=== PATIENT | male | born 1995 | race Caucasian/White ===

== ENCOUNTER 2018-08-21 13:18 | Emergency (ER) | payer OTHER ==
[2018-08-21] MEDS ORDERED: MAG HYDROX/AL HYDROX/SIMETH 30 ML UDC PO STA (13:35)
[2018-08-21] MEDS ORDERED: LIDOCAINE VISCOUS 2% 15 ML UDC MM STA (13:35)
--- NOTE | 2018-08-21 13:43 | ED Physician Documentation ---
PD HPI ABD PAIN - Stated complaint Stated Complaint: ABD PX - Chief complaint Chief Complaint: Abd Pain - History obtained from History obtained from: Patient - History of Present Illness Timing - onset: How many years ago (1) Timing - details: Intermittant (Worse during the past three days.) Pain level now: 5 Quality: Stabbing Location: LUQ Associated symptoms: Nausea. No: Vomiting Similar symptoms before: No diagnosis, Work up / diagnostics (Ultrasound of RUQ today was normal.) Recently seen: Clinic - Additional information Additional information: The patient is a 23-year-old male who presents with left upper quadrant abdominal pain. He has had the pain intermittently for the past year, but it is been worse over the past 3 days. It is worse when eating salty food. He also reports intermittent epigastric discomfort, and occasionally gets a bitter taste in his mouth. He denies fever, cough, or shortness of breath. He reports nausea, without vomiting. He was seen by his primary physician who ordered on outpatient ultrasound of the gallbladder which was performed today, and was read as negative. Review of Systems Constitutional: denies: Fever, Fatigue Nose: denies: Congestion Throat: denies: Sore throat Cardiac: denies: Chest pain / pressure Respiratory: denies: Dyspnea, Cough GI: reports: Abdominal Pain, Nausea. denies: Vomiting, Diarrhea : denies: Dysuria Skin: denies: Rash Musculoskeletal: denies: Back pain, Extremity pain Neurologic: denies: Focal weakness, Numbness, Headache PD PAST MEDICAL HISTORY - Past Medical History Past Medical History: Yes Respiratory: Sleep apnea, CPAP use Endocrine/Autoimmune: None - Past Surgical History Past Surgical History: No - Present Medications Home Medications: Ambulatory Orders Medication Instructions Recorded Confirmed Omeprazole 20 mg PO DAILY #30 tablet. 08/21/18 - Allergies Allergies/Adverse Reactions: Allergies Allergy/AdvReac Type Severity Reaction Status Date / Time Sulfa (Sulfonamide Allergy Hives Verified 08/21/18 13:28 Antibiotics) - Social History Does the pt smoke?: No Smoking Status: Never smoker Does the pt drink ETOH?: No Does the pt have substance abuse?: No - Immunizations Immunizations are current?: Yes PD ED PE NORMAL - Vitals Vital signs reviewed: Yes (normal) - General General: Alert and oriented X 3, Well developed/nourished - HEENT HEENT: Atraumatic, Moist mucous membranes, Pharynx benign - Neck Neck: No adenopathy, No JVD - Cardiac Cardiac: RRR, No murmur - Respiratory Respiratory: No respiratory distress, Clear bilaterally - Abdomen Abdomen: Soft, Non distended, Other (Mild tenderness to palpation of the left upper quadrant and epigastric region, without rebound tenderness or guarding.) - Back Back: No CVA TTP - Derm Derm: No rash - Extremities Extremities: No edema, No calf tenderness / cord - Neuro Neuro: Alert and oriented X 3, No motor deficit, Normal speech Results - Vitals Vitals: Oxygen O2 Source Room air PD MEDICAL DECISION MAKING - ED course Complexity details: re-evaluated patient, considered differential, d/w patient ED course: The patient's presentation is most consistent with gastroesophageal reflux or gastritis. I suspect his symptoms are exacerbated by the large volume of coffee he drinks on a daily basis. Treatment in the emergency included administration of GI cocktail, which completely relieved his symptoms. He is being discharged with prescription for omeprazole. I discussed with him the diagnosis, symptomatic treatment and outpatient follow-up, as well as potentially worrisome signs or symptoms that should prompt reevaluation in the emergency department. Departure - Departure Disposition: 01 Home, Self Care Clinical Impression: Gastroesophageal reflux disease Qualifiers: Esophagitis presence: esophagitis presence not specified Qualified Code(s): K21.9 - Gastro-esophageal reflux disease without esophagitis Instructions: ED GERD Follow-Up: EZEQUIEL SANCHEZ [Physician No Access] - Prescriptions: Omeprazole 20 mg PO DAILY #30 tablet. Comments: Take omeprazole daily as prescribed. Minimize coffee, alesia, alcohol. You can use liquid antacid, such as Maalox or Mylanta, if you develop recurrent symptoms. Follow-up with your primary physician within 2 weeks. Call to schedule an appointment. Return to the emergency department if you develop increasing abdominal pain, or otherwise worsening symptom. Discharge Date/Time: 08/21/18 14:56
[2018-08-21 14:57] VITALS: BP 124/85
== END 2018-08-21 14:56 | disposition home or self-care (01) ==
LOC: ED 13:18
DX: K21.9 Gastro-esophageal reflux disease without esophagitis (principal)
CPT/HCPCS: 99283; A9270

== ENCOUNTER 2018-11-03 12:53 | Outpatient (CLI) | payer OTHER ==
[2018-11-03] MEDS ORDERED: SINCALIDE 5 MCG VIAL ONE (13:52)
--- NOTE | 2018-11-03 16:32 | Nuclear Medicine Report ---
Reason: ABDOMINAL PAIN,LUQ Procedure Date: 11/03/2018 Accession Number: [id number] / [id number] Procedure: NM - Hepatobiliary HIDA w/ Rx CPT Code: FULL RESULT: EXAM: HEPATOBILIARY SCAN WITH CCK/KINEVAC ADMINISTRATION EXAM DATE: 11/03/2018 04:13 PM. CLINICAL HISTORY: Abdominal pain. COMPARISON: None. TECHNIQUE: Following the intravenous administration of 5.4 mCi of Tc99m Mebrofenin, a hepatobiliary scan was done centered on the liver and gallbladder in multiple sequential images and projections. Following the intravenous administration of 1.736 mcg of CCK/ Kinevac over the course of approximately 60 minutes, dynamic imaging was done and the gallbladder ejection fraction was calculated. FINDINGS: Normal extraction of tracer from the blood pool indicating normal hepatocellular function. The liver size and shape is grossly within normal limits. Appearance of tracer in the biliary tree as early as 5 minutes, within normal limits. Appearance of tracer in the gallbladder as early as 10 minutes, within normal limits, with good progression of filling throughout the remainder of the initial hour. Appearance of tracer in the small bowel as early as 20 minutes, within normal limits. With CCK administration, the gallbladder demonstrates an effective contraction. The gallbladder ejection fraction is calculated to be 40% at 30 minutes and 78% at 56 minutes, well above the lower limit of normal of 38% for a 60-minute injection. The patient did not report symptoms after CCK administration. No evidence of enteric reflux into the stomach. No significant collection of tracer remaining in the common bile duct by the end of the study. IMPRESSION: 1. Patent cystic duct. 2. Patent common bile duct. 3. Negative for acute or chronic cholecystitis. 4. No enterogastric bile reflux. 5. Gallbladder ejection fraction of 78%. RADIA
[2018-11-04] MEDS ORDERED: SINCALIDE 1.7 MCG in SODIUM CHLORIDE 0.9% 50 ML IV ONE (09:05)
== END 2018-11-03 12:54 | disposition home or self-care (01) ==
LOC: DI 12:53
PROVIDERS: ATTEND Student in an Organized Health Care Education/Training Program
DX: R10.12 Left upper quadrant pain (principal)
CPT/HCPCS: 78227

== ENCOUNTER 2018-12-04 10:18 | Outpatient (CLI) | payer OTHER ==
--- NOTE | 2018-12-04 16:48 | Nuclear Medicine Report ---
Reason: ABDOMINAL PAIN,LUQ,GASTROEDOPHAGEAL REFLUX,GERD Procedure Date: 12/04/2018 Accession Number: [id number] / [id number] Procedure: NM - Gastric Empty Small Bowel CPT Code: FULL RESULT: EXAM: GASTRIC EMPTYING STUDY EXAM DATE: 12/04/2018 03:06 PM. CLINICAL HISTORY: ABDOMINAL PAIN,LUQ, gastroesophageal REFLUX,GERD. COMPARISON: None. TECHNIQUE: A standard meal was radiolabeled with 1 mCi Tc-99m sulfur colloid according to protocol. Following the oral Administration of this meal, the patient underwent multiple static images over the abdomen from the anterior and posterior projections, at approximately 0, 1, 2,3 and 4 hours following the ingestion of the meal. Region of interest analysis was employed, and percent emptied/percent remaining of the meal was calculated using both the geometric mean and decay corrections. FINDINGS: Calculations demonstrate: TIME (hours) Percent remaining. Normal values for percent remaining. 1 hour: 9% (30-90%) 2 hours: 8% (0-60%) 3 hours: 2% (0-30%) 4 hours: 2% (0-10%) IMPRESSION: Findings suggest abnormally rapid gastric emptying. RADIA
== END 2018-12-04 10:19 | disposition home or self-care (01) ==
LOC: DI 10:18
PROVIDERS: ATTEND Internal Medicine
DX: R10.12 Left upper quadrant pain (principal); K21.9 Gastro-esophageal reflux disease without esophagitis
CPT/HCPCS: 78265